=== PATIENT | male | born 1950 | race Caucasian/White ===

== ENCOUNTER 2021-03-18 01:26 | Emergency (ER) | payer OTHER, BC ==
[~2021-03-18] VITALS: Ht 172.7 cm; Wt 84.4 kg
[~2021-03-18 01:26] MED LIST: COLACE 100 MG100 MG PO; HYDROCODON-ACE1 EAC7 PO; KEFLEX500 MG PO; NOHOMEMEDICATIONS; NORCO 5-325 TA1 EACH PO
[2021-03-18] MEDS ORDERED: POLYMYXIN B/TMP10 ML OPHTHALMIC (02:31)
[2021-03-18 02:40] VITALS: BP 145/97
== END 2021-03-18 02:41 | disposition home or self-care (01) ==
LOC: ER 01:26
DX: S05.01XA Injury of conjunctiva and corneal abrasion without foreign body, right eye, initial encounter (principal); Z98.890 Other specified postprocedural states; W22.8XXA Striking against or struck by other objects, initial encounter; Y93.89 Activity, other specified; Y92.89 Other specified places as the place of occurrence of the external cause; Y99.8 Other external cause status